=== PATIENT | female | born 1985 | race Caucasian/White ===

== ENCOUNTER 2018-06-14 12:58 | Inpatient (IN) | payer MEDICAID ==
[2018-06-14] MEDS: SOD CHLORIDE 0.9% 1,000 ML IV (13:39)
[2018-06-14 13:43] LABS: ADD MAN DIFF? NO
[2018-06-14 13:48] LABS: BASOPHIL # 0.1 10^3/ul (0.0-0.1); BASOPHILS % 0.6 % (0.0-2.0); EOSINOPHILS # 0.4 10^3/ul (0.0-0.5); EOSINOPHILS % 3.5 % (0.0-7.0); HEMATOCRIT 45.5 % (37.0-47.0); HEMOGLOBIN 14.9 g/dl (12.0-16.0); LYMPHOCYTES # 2.5 10^3/ul (0.8-2.9); LYMPHOCYTES % 23.2 % (15.0-51.0); MEAN CORPUSCULAR HEMOGLOBIN 29.7 pg (29.0-33.0); MEAN CORPUSCULAR HGB CONC 32.7 g/dl (32.0-37.0); MEAN CORPUSCULAR VOLUME 90.8 fl (82.0-101.0); MEAN PLATELET VOLUME 10.6 fl (7.4-10.4); MONOCYTE # 0.7 10^3/ul (0.3-0.9); MONOCYTES % 6.5 % (0.0-11.0); NEUTROPHIL # 7.2 10^3/ul (1.6-7.5); NEUTROPHILS % 65.9 % (39.0-77.0); PLATELET COUNT 354 10^3/UL (140-415); RED BLOOD COUNT 5.01 10^6/ul (4.20-5.40); RED CELL DISTRIBUTION WIDTH 12.6 % (11.5-14.5)
[2018-06-14 13:48] LABS: WHITE BLOOD COUNT 10.9 10^3/ul (4.8-10.8)
[2018-06-14 13:53] LABS: ADD UMIC NO; UR ASCORBIC ACID 20 mg/dL (NEGATIVE); UR BILIRUBIN (Dip) NEGATIVE (NEGATIVE); UR BLOOD (Dip) NEGATIVE (NEGATIVE); UR CLARITY CLEAR (CLEAR); UR COLOR YELLOW (YELLOW); UR GLUCOSE (Dip) NEGATIVE (NEGATIVE); UR KETONES (Dip) NEGATIVE (NEGATIVE); UR LEUKOCYTE ESTERASE (Dip) NEGATIVE Leu/ul (NEGATIVE); UR NITRITE (Dip) NEGATIVE (NEGATIVE); UR SPECIFIC GRAVITY (Dip) 1.015 (1.003-1.030); UR TOTAL PROTEIN (Dip) NEGATIVE (NEGATIVE); UR UROBILINOGEN (Dip) NEGATIVE (NEGATIVE)
[2018-06-14 14:04] LABS: ALANINE AMINOTRANSFERASE 68 IU/L (13-69); ALBUMIN 4.5 g/dl (3.3-4.9); ALKALINE PHOSPHATASE 89 IU/L (42-121); ANION GAP 9 (5-13); ASPARTATE AMINO TRANSFERASE 45 IU/L (15-46); BILIRUBIN,INDIRECT 0.5 mg/dl (0-1.1); BILIRUBIN,TOTAL 0.5 mg/dl (0.2-1.3); BLOOD UREA NITROGEN 10 mg/dl (7-20); CALCIUM 10.1 mg/dl (8.4-10.2); CARBON DIOXIDE 30 mmol/L (21-31); CHLORIDE 102 mmol/L (97-110); CREATININE 0.51 mg/dl (0.44-1.00); Estimated GFR > 60 mL/min (>60); GLUCOSE 89 mg/dl (70-220); LIPASE 172 U/L (23-300); POTASSIUM 4.5 mmol/L (3.5-5.1); SODIUM 141 mmol/L (135-144); TOTAL PROTEIN 7.3 g/dl (6.1-8.1)
[2018-06-14] MEDS: SOD CHLORIDE 0.9% 100 ML (14:26)
[2018-06-14] MEDS: IOHEXOL 300MG/ML 150 ML BTL (14:27)
[2018-06-14] MEDS: PIPER-TAZO 3.375 GM IV (PMX) 100 ML IVPB (15:39)
[2018-06-14] MEDS ORDERED: ONDANSETRON 4 MG INJ IV ×2 (17:30→18:00)
[2018-06-14] MEDS ORDERED: ACETAMINOPHEN 325 MG TAB PO ×2 (17:30→18:00)
[2018-06-14] MEDS ORDERED: NACL 0.9% 3 ML SYG IV (18:00)
[2018-06-14] MEDS ORDERED: MAGNESIUM HYDROXIDE 30ML CUP PO (18:00)
[2018-06-14] MEDS ORDERED: morphine 2 MG INJ IV (18:00)
[2018-06-14] MEDS ORDERED: PIPER-TAZO 3.375 GM IV (PMX) 100 ML IVPB (18:00)
[2018-06-14] MEDS ORDERED: ZOLPIDEM 5 MG TAB PO (18:00)
[2018-06-14] MEDS ORDERED: DOCUSATE SODIUM 100 MG CAP PO (18:00)
[2018-06-14] MEDS: NS + KCL 20 MEQ 1,000 ML IV (22:48)
[2018-06-15 06:07] LABS: ADD MAN DIFF? NO
[2018-06-15 06:09] LABS: WHITE BLOOD COUNT 9.1 10^3/ul (4.8-10.8)
[2018-06-15 06:10] LABS: BASOPHIL # 0.1 10^3/ul (0.0-0.1); BASOPHILS % 0.8 % (0.0-2.0); EOSINOPHILS # 0.3 10^3/ul (0.0-0.5); EOSINOPHILS % 3.5 % (0.0-7.0); HEMATOCRIT 41.3 % (37.0-47.0); HEMOGLOBIN 13.4 g/dl (12.0-16.0); LYMPHOCYTES # 2.9 10^3/ul (0.8-2.9); LYMPHOCYTES % 31.4 % (15.0-51.0); MEAN CORPUSCULAR HEMOGLOBIN 29.8 pg (29.0-33.0); MEAN CORPUSCULAR HGB CONC 32.4 g/dl (32.0-37.0); MEAN CORPUSCULAR VOLUME 91.8 fl (82.0-101.0); MEAN PLATELET VOLUME 10.5 fl (7.4-10.4); MONOCYTE # 0.6 10^3/ul (0.3-0.9); MONOCYTES % 6.3 % (0.0-11.0); NEUTROPHIL # 5.3 10^3/ul (1.6-7.5); NEUTROPHILS % 57.8 % (39.0-77.0); PLATELET COUNT 272 10^3/UL (140-415); RED CELL DISTRIBUTION WIDTH 12.8 % (11.5-14.5)
[2018-06-15 06:48] LABS: ANION GAP 7 (5-13); BLOOD UREA NITROGEN 8 mg/dl (7-20); CARBON DIOXIDE 29 mmol/L (21-31); CHLORIDE 108 mmol/L (97-110); CREATININE 0.55 mg/dl (0.44-1.00); Estimated GFR > 60 mL/min (>60); GLUCOSE 85 mg/dl (70-220); PHOSPHORUS 4.5 mg/dl (2.5-4.9); POTASSIUM 4.5 mmol/L (3.5-5.1); SODIUM 144 mmol/L (135-144)
[2018-06-15] MEDS: LEVOTHYROXINE 50 MCG TAB PO (07:00)
[2018-06-15] MEDS: NS + KCL 20 MEQ 1,000 ML IV ×2 (09:10→13:51)
[2018-06-15] MEDS ORDERED: LANOLOLIN HPA 1 PKT TOP (10:30)
[2018-06-15] MEDS ORDERED: ROCURONIUM 50 MG INJ (17:26)
[2018-06-15] MEDS ORDERED: PROPOFOL 20 ML (17:26)
[2018-06-15] MEDS ORDERED: ROPIVACAINE 0.2% 20 ML VIAL (17:27)
[2018-06-15] MEDS ORDERED: FENTAnyl 50 MCG/ML VIAL ×2 (17:27→18:45)
[2018-06-15] MEDS ORDERED: MEPERIDINE 25 MG INJ IV (17:30)
[2018-06-15] MEDS ORDERED: METOCLOPRAMIDE 10 MG INJ IV (17:30)
[2018-06-15] MEDS ORDERED: ONDANSETRON 4 MG INJ IV (17:30)
[2018-06-15] MEDS ORDERED: HYDROmorphONE 1 MG/5 ML IV SYRINGE IV ×3 (17:30)
[2018-06-15] MEDS ORDERED: FENTAnyl 50 MCG/ML VIAL IV ×2 (17:30)
[2018-06-15] MEDS ORDERED: DIPHENHYDRAMINE 50 MG INJ IV (17:30)
[2018-06-15] MEDS ORDERED: ONDANSETRON 4 MG INJ (18:24)
[2018-06-15] MEDS ORDERED: DEXAMETHASONE 4 MG/ML 1 ML INJ (18:24)
[2018-06-15] MEDS ORDERED: GLYCOPYRROLATE 0.4 MG INJ (18:24)
[2018-06-15] MEDS ORDERED: METOCLOPRAMIDE 10 MG INJ (18:24)
[2018-06-15] MEDS ORDERED: NEOSTIGMINE 3 MG/3 ML SYRINGE (18:24)
[2018-06-15] MEDS ORDERED: KETOROLAC 30 MG INJ (18:25)
[2018-06-15] MEDS: FENTAnyl 50 MCG/ML VIAL IV (19:27)
[2018-06-15] MEDS ORDERED: IBUPROFEN 600 MG TAB PO (19:30)
[2018-06-15] MEDS ORDERED: ACETAMINOPHEN 325 MG TAB PO (19:30)
[2018-06-15] MEDS: D5W-0.45 NACL + KCL 20 MEQ 1,000 ML IV (20:29)
[2018-06-15] MEDS: HYDROCODONE/APAP (5/325) TAB PO (22:02)
[2018-06-16] MEDS: HYDROCODONE/APAP (5/325) TAB PO ×2 (04:08→10:25)
[2018-06-16] MEDS: D5W-0.45 NACL + KCL 20 MEQ 1,000 ML IV (06:33)
[2018-06-16] MEDS: LEVOTHYROXINE 50 MCG TAB PO (06:33)
== END 2018-06-16 12:45 | disposition home or self-care (01) | DRG 343 ==
LOC: FTE 12:58 → 2NE 17:27
PROC: 0DTJ4ZZ Resection of Appendix, Percutaneous Endoscopic Approach (ICD-10-PCS; principal; 2018-06-15 14:30)
DX: K35.80 Unspecified acute appendicitis (principal)
CPT/HCPCS: 74177; 80048; 80053; 81003; 81025; 83036; 83690; 83735; 84100; 85025; 88304; 96361; 96365; 99285-25